=== PATIENT | female | born 1955 | race Caucasian/White ===

== ENCOUNTER → 2020-05-03 10:56 | Outpatient (CLI) | payer MEDICARE, OTHER, SELFPAY ==
[2019-03-13 12:33] VITALS: BMI 27.1
[2020-05-03 11:35] LABS: Absolute Lymphocyte Count 2.16 X10^3/uL (0.83-4.51); Absolute Neutrophil Count 3.5 X10^3/uL (2.0-7.7); Basophil# 0.08 X10^3/uL; Basophil% 1.2 % (0-1); Eosinophil# 0.25 X10^3/uL; Eosinophils% 3.8 % (0-5); Hematocrit 48.7 % (37-47); Hemoglobin 15.2 g/dL (12.0-15.0); Lymphocyte # 2.16 X10^3/ul (4.0); Lymphocyte % 33.2 % (19-41); Mean Corp Hgb Conc 31.2 g/dL (32-36); Mean Corpuscular Hgb 30.2 pg (27.0-32.0); Mean Corpuscular Volume 96.6 fL (81-99); Mean Platelet Vol. 10.2 fl (6.2-12.0); Monocyte# 0.47 X10^3/uL; Monocyte% 7.2 % (0-10); NRBC Flagged by Analyzer 0 % (0-5); Neutrophil # 3.52 X10^3/uL (2.7-7.7); Neutrophil % 54.3 % (47-70); Platelet Count 248 K/mm3 (150-450); RBC Distribution Width CV 13.3 % (11.6-14.6); RBC Distribution Width SD 47.8 fl (35.1-43.9); Red Blood Count 5.04 M/mm3 (4.2-5.4); White Blood Count 6.5 K/mm3 (4.4-11.0)
[2020-05-03 12:04] LABS: Vitamin D,25 Hydroxy 8.5 ng/mL
[2020-05-03 12:08] LABS: AST(SGOT) 27 U/L (15-37); Alanine Aminotransfer ALT/SGPT 44 U/L (13-56); Albumin, Serum 3.6 g/dL (3.2-5.0); Alkaline Phosphatase 98 U/L (45-117); Anion Gap 3 (5-15); BUN 9 mg/dL (7-18); BUN/Creat Ratio 12.9 RATIO (10-20); Bilirubin, Direct 0.11 mg/dL (0.00-0.30); Calcium,Total 9.2 mg/dL (8.5-10.1); Chloride 106 mmol/L (98-107); Cholesterol 227 mg/dL (200); EST Glomerular Filtration Rate 90 mL/min (>60); Est Glom Filt Rate - Afr Amer 109 mL/min (>60); Globulin 3.6 g/dL (2.2-4.2); Glucose 104 mg/dL (74-106); High Density Lipoprotein 49 mg/dL; Potassium 4.6 mmol/L (3.5-5.1); Protein, Total 7.2 g/dL (6.4-8.2); Sodium Level 139 mmol/L (136-145); T4 Total, Thyroxin 8.9 ug/dL (4.8-13.9); Thyroid Stim Hormone (TSH) 1.16 uIU/mL (0.358-3.74); Triglycerides 201 mg/dL; Very Low Density Lipoprotein 40 mg/dL (5-40)
== END ==
DX: I10 Essential (primary) hypertension (principal)
CPT/HCPCS: 36415; 80053; 80061; 82248; 82306; 84436; 84443; 85025

== ENCOUNTER → 2020-08-08 14:43 | Outpatient (CLI) | payer MEDICARE, OTHER, SELFPAY ==
[2019-03-13 12:33] VITALS: BMI 27.1
--- NOTE | 2020-08-08 14:49 | RAD_ITS ---
STUDY: X-RAY - PELVIS AND LEFT HIP REASON FOR EXAM: Female, 65 years old. R/O FX TECHNIQUE: 3 views of the pelvis and hip. COMPARISON: None. FINDINGS: There is a non-specific bowel gas pattern. Normal visualized soft tissue structures. Normal bilateral iliac wings, sacroiliac joints and visualized sacrum. Normal bilateral superior and inferior pubic rami. Normal pubic symphysis. Normal bilateral ischial tuberosities. Normal visualized femoral head. Normal acetabulum. There is mild articular joint space narrowing of the hip. RAD/HIP, UNI W/ Pelvis 2-3 Views IMPRESSION: Age consistent degenerative changes, no acute findings Electronically Signed: Karan Velázquez MD at 15:14 EDT , Service support ,
== END ==
DX: M25.552 Pain in left hip (principal)
CPT/HCPCS: 73502

== ENCOUNTER → 2020-10-18 13:04 | Outpatient (CLI) | payer MEDICARE, OTHER, SELFPAY ==
[2019-03-13 12:33] VITALS: BMI 27.1
--- NOTE | 2020-10-18 13:45 | MRI_ITS ---
STUDY: MRI LEFT HIP REASON FOR EXAM: Female, 65 years old. LEFT HIP pain, buttock hematoma following fall in June TECHNIQUE: Standardized fat and water weighted pulse sequences were obtained in all 3 orthogonal planes. Images of the pelvis are included on several sequences. COMPARISON: Hip x-ray dated AUGUST 08, 2020 FINDINGS: No marrow edema or fracture line or avascular necrosis is seen. A small right hip joint effusion is present. A small 5.62 cm ovoid fluid collection is present in the deep subcutaneous fat just outside of the left hip joint likely due to old trauma. Normal hip joint without articular joint space narrowing. Normal acetabulum. Normal labrum. Normal femoral head. Normal femoral neck and intratrochanteric region. Normal gluteus minimus, medius and iliopsoas tendons and distal insertions. There is no trochanteric, iliopsoas or iliopectineal bursitis. Normal superior and inferior pubic rami. Normal pubic symphysis. Normal ischial tuberosity. Normal origin of the hamstring tendons. Normal visualized iliac wing, sacroiliac joint, and sacral ala. Normal visualized soft tissue structures of the pelvis. MRI/Lower Ext Joint Only (Routine) IMPRESSION: 1. A small right hip joint effusion is present. A small 5.62 cm ovoid fluid collection is present in the deep subcutaneous fat just outside of the left hip joint likely due to old trauma. 2. Small right hip joint effusion 3. No marrow edema or fracture line or avascular necrosis. Electronically Signed: Matt Bhagat MD at 21:18 EDT , Service support ,
== END ==
DX: M25.552 Pain in left hip (principal)
CPT/HCPCS: 73721

== ENCOUNTER → 2020-12-31 09:51 | Outpatient (CLI) | payer MEDICARE, OTHER, SELFPAY ==
--- NOTE | 2020-12-31 10:40 | EKG12_ITS ---
Test Reason : PRE OP Blood Pressure : / mmHG Vent. Rate : 070 BPM Atrial Rate : 070 BPM P-R Int : 196 ms QRS Dur : 064 ms QT Int : 366 ms P-R-T Axes : 058 048 063 degrees QTc Int : 395 ms Normal sinus rhythm Low voltage QRS Septal infarct , age undetermined Abnormal ECG Confirmed by BERNARDO CAMPOS, SWAPNA ([id number]), scientific editor MAHSA VALENTINO ([id number]) on 01/01/2021 9:11:51 AM Referred By: Daniel Díaz Confirmed By:SWAPNA CHANG MD
--- NOTE | 2020-12-31 10:44 | RAD_ITS ---
INDICATION: PRE OP EXAMINATION/TECHNIQUE: X-RAY - XR Chest 2 Views COMPARISON: None. FINDINGS: LINES/DEVICES: None. LUNGS: Symmetric normal lung volumes. No airspace opacity or abnormal interstitial pattern. No nodule or mass. No pleural effusion or pneumothorax. MEDIASTINUM AND CARDIOVASCULAR STRUCTURES: Normal size and contour of the cardiomediastinal silhouette. No evidence of pulmonary vascular congestion. BONES AND SOFT TISSUES: No abnormality within limits of the exam. RAD/Chest PA and Lateral IMPRESSION: 1. No radiographic evidence of acute cardiopulmonary disease. Electronically Signed: Perico Michelle DO at 23:34 EDT Tel , Service support ,
[2020-12-31 12:08] LABS: Absolute Neutrophil Count 5.6 X10^3/uL (2.0-7.7); Basophil# 0.06 X10^3/uL; Basophil% 0.7 % (0-1); Eosinophil# 0.14 X10^3/uL; Eosinophils% 1.7 % (0-5); Hematocrit 46.1 % (37-47); Hemoglobin 15.2 g/dL (12.0-15.0); Lymphocyte % 23.8 % (19-41); Mean Corpuscular Hgb 32.1 pg (27.0-32.0); Mean Corpuscular Volume 97.3 fL (81-99); Mean Platelet Vol. 9.9 fl (6.2-12.0); Monocyte# 0.57 X10^3/uL; Monocyte% 6.8 % (0-10); NRBC Flagged by Analyzer 0 % (0-5); Neutrophil # 5.59 X10^3/uL (2.7-7.7); Neutrophil % 66.5 % (47-70); Platelet Count 262 K/mm3 (150-450); RBC Distribution Width CV 13.6 % (11.6-14.6); RBC Distribution Width SD 49.4 fl (35.1-43.9); Red Blood Count 4.74 M/mm3 (4.2-5.4); White Blood Count 8.4 K/mm3 (4.4-11.0)
[2020-12-31 12:17] LABS: Partial Thromboplast Time 30.3 Seconds (24.1-36.2); Prothrombin Time (Protime)PT. 12.4 SECONDS (11.7-14.9)
[2020-12-31 12:42] LABS: Anion Gap 4 (5-15); BUN 7 mg/dL (7-18); BUN/Creat Ratio 11.3 RATIO (10-20); Chloride 102 mmol/L (98-107); Creatinine, Serum 0.62 mg/dL (0.55-1.02); EST Glomerular Filtration Rate 103 mL/min (>60); Est Glom Filt Rate - Afr Amer 125 mL/min (>60); Glucose 95 mg/dL (74-106); Sodium Level 139 mmol/L (136-145)
== END ==
PROVIDERS: Referring Provider Student in an Organized Health Care Education/Training Program; Visit Provider Student in an Organized Health Care Education/Training Program
DX: Z01.818 Encounter for other preprocedural examination (principal); I10 Essential (primary) hypertension
CPT/HCPCS: 36415; 71046; 80048; 85025; 85610; 85730; 87635; 93005; C9803; U0005; U0003

== ENCOUNTER → 2021-01-07 14:53 | Outpatient (CLI) | payer MEDICARE, OTHER, SELFPAY ==
--- NOTE | 2021-01-07 10:00 | TISS_PTH ---
PATIENT: YUE CHENEY LOC: [facility] U#:[id number] AGE/SX: 69/F ROOM: RE01/07/[address]: Dr. Daniel Díaz DO : 1955 BED: DIS: SPEC #: [id number] RECD: 01/07/21 14:48 STATUS: FAUSTINO NIGEL #: [id number] KEVEN: 01/07/21 10:[address]: Daniel Díaz DEPT: SURGICAL PATHOLOGY RECD BY: Wanda Ramirez ENTERED: 01/14/21 09:05 SP TYPE: Tissue Bx KERI DR: Gail [facility] Tissues: Hip, NOS Procedures: Surgery Specimen Level III HEADER OPERATION: Left hip I & D PRE-OP DIAGNOSIS: Left hip I & D TISSUE SUBMITTED: Soft tissue left hip MICROSCOPIC DIAGNOSIS Left tissue left hip: Fragments of fibroadipose and fibroconnective tissue with reactive changes. SJ:tereza 01/15/2021 MICROSCOPIC DESCRIPTION Slides are reviewed. GROSS DESCRIPTION Received in fixative is one container labeled with the patient's name and designated soft tissue left hip. The specimen consists of two pieces of jaffe-yellow fibroadipose tissue measuring in aggregate 2.5 x 1.5 x 0.5 cm. No mass lesion is identified. The entire specimen is submitted in one cassette. / SIVA:tereza 01/14/21 TC:5 CPT: 11630
[2021-01-07 19:41] LABS: M R Staph aureus DNA By PCR Negative (Negative); Probe Check PASS; Specimen Processing Control PASS; Staph aureus DNA By PCR NEGATIVE (Negative)
== END ==
PROVIDERS: Referring Provider Student in an Organized Health Care Education/Training Program; Visit Provider Student in an Organized Health Care Education/Training Program
DX: S71.002A Unspecified open wound, left hip, initial encounter (principal)
CPT/HCPCS: 87070; 87205; 87640; 88304; 88305

== ENCOUNTER 2021-03-05 12:43 | Day surgery (SDC) | payer MEDICARE, OTHER, SELFPAY ==
[2021-03-03 10:51] LABS: Absolute Neutrophil Count 4.6 X10^3/uL (2.0-7.7); Basophil# 0.09 X10^3/uL; Basophil% 1.2 % (0-1); Eosinophil# 0.14 X10^3/uL; Eosinophils% 1.8 % (0-5); Hematocrit 44.8 % (37-47); Hemoglobin 14.9 g/dL (12.0-15.0); Lymphocyte % 28.9 % (19-41); Mean Corp Hgb Conc 33.3 g/dL (32-36); Mean Corpuscular Volume 96.1 fL (81-99); Mean Platelet Vol. 10.1 fl (6.2-12.0); Monocyte# 0.59 X10^3/uL; Monocyte% 7.7 % (0-10); NRBC Flagged by Analyzer 0 % (0-5); Neutrophil # 4.58 X10^3/uL (2.7-7.7); Neutrophil % 60.1 % (47-70); Platelet Count 250 K/mm3 (150-450); RBC Distribution Width SD 46.1 fl (35.1-43.9); Red Blood Count 4.66 M/mm3 (4.2-5.4); White Blood Count 7.6 K/mm3 (4.4-11.0)
[2021-03-03 10:57] LABS: Prothrombin Time (Protime)PT. 12.4 SECONDS (11.7-14.9)
[2021-03-03 10:58] LABS: Partial Thromboplast Time 30.3 Seconds (24.1-36.2)
[2021-03-03 11:12] LABS: Anion Gap 4 (5-15); BUN 8 mg/dL (7-18); BUN/Creat Ratio 12.4 RATIO (10-20); Calcium,Total 8.8 mg/dL (8.5-10.1); Chloride 107 mmol/L (98-107); Creatinine, Serum 0.65 mg/dL (0.55-1.02); EST Glomerular Filtration Rate 98 mL/min (>60); Est Glom Filt Rate - Afr Amer 118 mL/min (>60); Glucose 107 mg/dL (74-106); Potassium 4.2 mmol/L (3.5-5.1); Sodium Level 140 mmol/L (136-145)
[2021-03-05] VITALS (9 sets, daily range): BP systolic 108–129; BP diastolic 59–74; PULSE 62–77; RESP 16–18; TEMP 36.1–36.9; O2SAT 92–96; BMI 28.3
--- NOTE | 2021-03-05 | HIP_PTH ---
PATIENT: YUE CHENEY LOC: [facility] U#:[id number] AGE/SX: 66/F ROOM: RE03/05/[address]: Dr. Daniel Díaz DO : 1955 BED: DIS: 03/05/2021 SPEC #: [id number] RECD: 03/06/21 08:04 STATUS: FAUSTINO REMarizol #: [id number] KEVEN: 03/05/21 00:[address]: Daniel Díaz DEPT: SURGICAL PATHOLOGY RECD BY: Kash Rodriguez ENTERED: 03/06/21 10:30 SP TYPE: TOTAL HIP OTHR DR: Gail [facility] Tissues: Hip, NOS Procedures: Decalcification bone/plaque Surgery Specimen Level III HEADER OPERATION: Incision and drainage abscess, hip seroma PRE-OP DIAGNOSIS: Traumatic secondary and recurrent hemorrhage and seroma TISSUE SUBMITTED: Left hip subcutaneous mass MICROSCOPIC DIAGNOSIS Soft tissue mass of left hip, excision: Mature adipose tissue consistent with lipoma. Focal fat necrosis. AM:tereza 03/07/2021 MICROSCOPIC DESCRIPTION Slides are reviewed. GROSS DESCRIPTION Received in fixative is one container labeled with the patient's name and designated left hip subcutaneous mass. The specimen consists of multiple irregular fragments of yellow fatty tissue ranging in size from 0.5 to 7 cm. Serial sections reveal homogenous yellow cut surfaces. Probation Manager sections are submitted in two cassettes. / AM:tereza 03/06/2021 TC:1 CPT: 31136
[2021-03-05] MEDS: Lactated Ringers 1,000 ML 15 ML IV (13:33)
[2021-03-05] MEDS: Cefazolin 1 GM/50 ML BAG IV (14:46)
[2021-03-05] MEDS: Ropivacaine 0.5% 30 ML Vial (15:30)
--- NOTE | 2021-03-05 15:45 | DCINST_ITS ---
Discharge Instructions Follow Up Care Test Results: Test results from this visit will be discussed in further detail at your follow-up appointment, if applicable. Discharge Plan Admission Primary Reason for Your Visit: Left hip surgery Attending Provider: Daniel Díaz [facility] Additional Instructions / Restrictions: Maintain surgical dressing x2 days Okay to remove and shower at that time if no drainage Activity as tolerated, no heavy lifting until follow-up Discharge Orders/Prescriptions Prescriptions: Continued cetirizine 10 mg capsule 10 mg PO QDAY RF: 0 losartan 25 mg Tablet 12.5 mg PO BID RF: 0 montelukast [Singulair] 10 mg Tablet 10 mg PO DAILY RF: 0 ergocalciferol (vitamin D2) [Vitamin D2] 1,250 mcg (50,000 unit) Capsule 50,000 unit PO MO RF: 0 PreserVision AREDS-2 250-90-40-1 mg Capsule 1 tab PO BID RF: 0 Referrals / Follow Up: Daniel Díaz DO [STAFF PHYSICIAN] - [facility] - Disposition Disposition (needs filled in before D/C Order can be placed): Home, Self Care
--- NOTE | 2021-03-05 15:45 | PCM.OPRPT ---
Report of Operation Date of Procedure: 03/05/21 Description of Surgical Findings:: Preoperative diagnosis: Left hip subcutaneous seroma Postoperative diagnosis: 1. Left hip subcutaneous seroma 2. Left hip subcutaneous simple cyst Procedure: 1. Incision and drainage left hip seroma 2. Excision of simple cyst wall material Burnt Lime Drawer: JENI Cobb Anesthesiologist: Dr. Lee /Honorio Gonzales CRNA Estimated blood loss: 10 cc IV fluids: 900 cc crystalloid Urine output: None recorded Specimen: 1-subcutaneous mass left hip Complications: None apparent Intraoperative findings: Turbid fluid collection consistent with a seroma left hip Simple cyst wall material both anterior and posterior to previous and incision and surgical dissection field Preoperative indications: This is a 66-year-old female seen outpatient setting for left hip pain. She had a prior fall several months prior to her presentation to my office. An MRI was obtained by another provider my office which revealed a subcutaneous fluid collection along the lateral left hip, extrafascial. She was taken for a excision/I&D of the fluid collection 01/07/2021 at [facility]. A simple cyst was identified and cystic fluid and wall material was excised at that time. Patient did well initially following that surgery with no symptoms. Several weeks after the procedure, patient noted return of swelling and pain especially with laying on that side and tight clothing. I attempted another aspiration in the office of the fluid collection, I was able to aspirate about 5 cc of turbid fluid. The patient did not notice any relief in the coming days. We discussed watchful waiting versus in a irrigation and debridement of the fluid collection. She wished to proceed with surgical exploration and excision. We discussed the risks of surgery including recurrence, persistent pain, need for additional surgery, infection, loss of life or limb, risk of anesthesia, neurovascular injury, DVT or PE. Patient expressed understands risks and wished to proceed with surgery. Description of procedure: Patient is identified the preoperative holding area by name, medical record number, and date of . The operative extremity was marked with a surgical marker. All questions were answered to the patient's satisfaction. Informed consent was confirmed. At time of her procedure, patient was brought to the operative suite and positioned supine a standard operating table. General anesthesia was induced and endotracheal tube placed. After the tube was secured, patient was positioned in the in the lateral decubitus position with the left side up. We positioned an axillary roll under the patient's right axilla. All bony prominences were well-padded. The fibular head was free of the right leg. We utilized the Alimed hip positioner system. The left lateral hip was prepped and draped in a normal sterile orthopedic fashion. We then performed a timeout with all parties in attendance in agreement with the side, site, and operation be performed. No concerns were voiced and we elected to proceed. 1 g Ancef was administered prior to incision by the anesthesia staff. I first marked the previous incision with a surgical marker. I then planned extending incision approximately 2 inches proximal and distal. Skin was sharply incised with a 10 blade scalpel through skin and subcutaneous tissue. Hemostasis was obtained the subcutaneous tissue with Bovie cautery. Self-retaining retractors were placed deep. Deep to the superficial fatty layer, we encountered a fluid collection, which demonstrated red and turbid appearance. This was swabbed and sent for culture for aerobic and anaerobic organisms. There was thickened fatty tissue noted. I suspect this is either posttraumatic changes to the fat given her history of fall on that side or postsurgical. Regardless, this abnormal fatty tissue was sent for pathology analysis. The sample measured approximately 6 cm in length, 2 cm in depth, and 2 cm in anterior posterior direction. I then explored the remaining wound bed. There was cystic wall material noted in both the anterior and posterior direction from the previous surgical tract. This was excised to healthy appearing fat. Through the dissection, 2 small violations of the fascia occurred just posterior to the skin incision level. These were both repaired in watertight fashion with [id number] #1 Vicryl suture. I then thoroughly irrigated the wound with normal saline solution. Deeper fatty layer was closed with a running #1 Vicryl to eliminate space. Superficial fatty layer was closed/reapproximated with buried 0 Vicryl suture. Dermis was finally reapproximated with buried 2-0 Vicryl suture and skin reapproximated with irma. A field block of 30 cc 0.5% ropivacaine was administered with a 20-gauge needle. Mepilex dressing was then applied. Patient tolerated procedure well without complication. She was able to be positioned back in the supine position and safely extubated in the operative suite. She was transferred to a gurney and subsequently to PACU in stable condition. Postoperative plan: Patient will be weightbearing as tolerated in the left lower extremity. Ice to the surgical site. Plan to discharge home after meeting same-day surgery criteria. No heavy lifting. Okay to remove dressing and shower on postoperative day #2 if no drainage. Aspirin 81 mg twice daily for DVT prophylaxis until follow-up in approximately 3 weeks. Follow cultures and pathology results as an outpatient. Low suspicion for infection at this time, I will hold off outpatient antibiotics at this time. Follow-up in 3 weeks in the office.
== END 2021-03-05 17:45 | disposition home or self-care (01) ==
LOC: SDC 12:44 → AC 12:45
PROVIDERS: Referring Provider Student in an Organized Health Care Education/Training Program; Visit Provider Student in an Organized Health Care Education/Training Program
PROC: (CPT 10140; principal; 2021-03-05 14:20)
DX: T79.2XXD Traumatic secondary and recurrent hemorrhage and seroma, subsequent encounter (principal); S70.02XD Contusion of left hip, subsequent encounter; X58.XXXD Exposure to other specified factors, subsequent encounter; M70.62 Trochanteric bursitis, left hip; M25.852 Other specified joint disorders, left hip; M25.552 Pain in left hip; M79.89 Other specified soft tissue disorders; F17.210 Nicotine dependence, cigarettes, uncomplicated; I10 Essential (primary) hypertension; Z79.899 Other long term (current) drug therapy; Z91.81 History of falling
CPT/HCPCS: 00400; 10140; 27043; 36415; 80048; 85025; 85610; 85730; 87070; 87075; 87102; 87205; 87206; 87426; 88304; 88305; 88311; J7120; J2405

== ENCOUNTER → 2022-03-24 | Outpatient (CLI) | payer MEDICARE, SELFPAY ==
[2022-03-24 14:22] LABS: Anion Gap 5 (5-15); BUN 12 mg/dL (7-18); BUN/Creat Ratio 18.4 RATIO (10-20); Calcium,Total 9.5 mg/dL (8.5-10.1); Chloride 105 mmol/L (98-107); Cholesterol 234 mg/dL (200); Creatinine, Serum 0.65 mg/dL (0.55-1.02); EST Glomerular Filtration Rate 96 mL/min (>60); Est Glom Filt Rate - Afr Amer 117 mL/min (>60); Glucose 111 mg/dL (74-106); High Density Lipoprotein 45 mg/dL; Potassium 4.6 mmol/L (3.5-5.1); Sodium Level 141 mmol/L (136-145); Triglycerides 248 mg/dL; Very Low Density Lipoprotein 50 mg/dL (5-40)
== END | disposition home or self-care (01) ==
LOC: LAB 12:16
DX: I10 Essential (primary) hypertension (principal); E55.9 Vitamin D deficiency, unspecified
CPT/HCPCS: 36415; 80048; 80061; 82306

== ENCOUNTER → 2024-05-11 | Outpatient (CLI) | payer MEDICARE, SELFPAY ==
[2024-05-11 16:56] LABS: Absolute Neutrophil Count 5.2 X10^3/uL (2.0-7.7); Basophil# 0.08 X10^3/uL; Basophil% 0.9 % (0-1); Eosinophil# 0.12 X10^3/uL; Eosinophils% 1.3 % (0-5); Hematocrit 44.9 % (37-47); Hemoglobin 14.6 g/dL (12.0-15.0); Lymphocyte % 33.1 % (19-41); Mean Corp Hgb Conc 32.5 g/dL (32-36); Mean Corpuscular Hgb 30.5 pg (27.0-32.0); Mean Corpuscular Volume 93.9 fL (81-99); Mean Platelet Vol. 10.1 fl (6.2-12.0); Monocyte# 0.59 X10^3/uL; Monocyte% 6.5 % (0-10); NRBC Flagged by Analyzer 0 % (0-5); Neutrophil # 5.23 X10^3/uL (2.7-7.7); Neutrophil % 57.9 % (47-70); Platelet Count 276 K/mm3 (150-450); RBC Distribution Width CV 13.4 % (11.6-14.6); RBC Distribution Width SD 46.9 fl (35.1-43.9); Red Blood Count 4.78 M/mm3 (4.2-5.4); White Blood Count 9.1 K/mm3 (4.4-11.0)
[2024-05-11 17:11] LABS: Vitamin D,25 Hydroxy 70.1 ng/mL
[2024-05-11 17:22] LABS: ALB/GLOB Ratio 1.1 RATIO (0.9-2.4); AST(SGOT) 19 U/L (15-37); Alanine Aminotransfer ALT/SGPT 21 U/L (13-56); Albumin, Serum 3.8 g/dL (3.2-5.0); Alkaline Phosphatase 86 U/L (45-117); Anion Gap 7 (5-15); BUN 8 mg/dL (7-18); BUN/Creat Ratio 13.3 RATIO (10-20); Calcium,Total 9.3 mg/dL (8.5-10.1); Chloride 103 mmol/L (98-107); Cholesterol 212 mg/dL (200); EST Glomerular Filtration Rate 105 mL/min (>60); Est Glom Filt Rate - Afr Amer 127 mL/min (>60); Globulin 3.5 g/dL (2.2-4.2); Glucose 91 mg/dL (74-106); High Density Lipoprotein 44 mg/dL; Potassium 4.2 mmol/L (3.5-5.1); Protein, Total 7.3 g/dL (6.4-8.2); Sodium Level 138 mmol/L (136-145); Triglycerides 287 mg/dL; Very Low Density Lipoprotein 57 mg/dL (5-40)
== END | disposition home or self-care (01) ==
LOC: VSLAB 15:02
PROVIDERS: PCP Nurse Practitioner Family; Referring Provider Nurse Practitioner Family; Visit Provider Nurse Practitioner Family
DX: E55.9 Vitamin D deficiency, unspecified (principal); E78.5 Hyperlipidemia, unspecified; I10 Essential (primary) hypertension
CPT/HCPCS: 36415; 80053; 80061; 82306; 84443; 85025